=== PATIENT | male | born 1980 | race Caucasian/White ===

== ENCOUNTER 2023-03-20 10:13 | Emergency (ER) | payer OTHER, SELFPAY ==
--- NOTE | ~2023-03-20 | XR_ITS ---
EXAMINATION: XR CHEST CLINICAL INFORMATION: Cough and chest pain COMPARISON: 05/12/2018 TECHNIQUE: 2 views of the chest were obtained. FINDINGS: Lungs are mildly hypoinflated but clear. There appears to be chronic mild thickening of bronchial steward. No airspace disease or pleural effusion. No pneumothorax. Cardiac silhouette has normal size and contour. Skeletal structures and visualized upper abdomen are unremarkable. XR/XR chest 2V IMPRESSION: * No evidence of pneumonia. * There appears to be chronic mild thickening of bronchial steward. This could be a manifestation of asthma or bronchitis.
[2023-03-20 10:36] VITALS: BP 133/87; PULSE 84; RESP 16; TEMP 37.1; O2SAT 98; BMI 33.4
--- NOTE | 2023-03-20 10:40 | ECG_ITS ---
Test Reason : CP Blood Pressure : / mmHG Vent. Rate : 087 BPM Atrial Rate : 087 BPM P-R Int : 188 ms QRS Dur : 084 ms QT Int : 364 ms P-R-T Axes : 054 032 032 degrees QTc Int : 438 ms Normal sinus rhythm Normal ECG When compared to the previous EKG of sinus tachycardia not present. Referred By: Generic ED Physician Electronically Signed By:Law Garcia
[2023-03-20 10:51] LABS: MANUAL DIFF FLAG NO
[2023-03-20 10:52] LABS: Basophils Percent Auto 0.6 % (0-2); Eosinophils Absolute Auto 0.3 X10*3/uL (0.0-0.4); Eosinophils Percent Auto 5.3 % (0-4); Hematocrit 47.3 % (42.0-52.0); Hemoglobin 16.1 g/dl (14.0-18.0); Imm Gran Abs Auto 0.02 X10*3/uL (0.00-0.03); Imm Gran Pct Auto 0.4 % (0.0-0.4); Lymphocytes Absolute Auto 1.8 X10*3/uL (1.2-4.9); Lymphocytes Percent Auto 34.2 % (20-40); Mean Corpuscular Hemoglobin 31.1 pg (27.0-33.0); Mean Corpuscular Volume 91.3 fL (80.0-98.0); Mean Platelet Volume 8.6 fL (9.4-12.4); Monocytes Absolute Auto 0.4 X10*3/uL (0.1-1.2); Monocytes Percent Auto 7.6 % (2-11); Neutrophils Absolute Auto 2.7 x10*3/uL (2.0-8.3); Neutrophils Percent Auto 51.9 % (45-73); Platelet Count 261 X10*3/uL (160-400); Red Blood Count 5.18 X10*6/uL (4.60-5.80); Red Cell Distribution Width 13.6 % (11.0-16.0); White Blood Count 5.3 X10*3/uL (4.8-10.8)
[2023-03-20 11:04] LABS: Anion Gap 10 (12-20); Blood Urea Nitrogen 13 mg/dL (9-16); Calcium 9.4 mg/dL (8.4-10.2); Carbon Dioxide 27 mmol/L (22-29); Chloride 106 mmol/L (96-108); Creatinine Clr Calc Pharmacy 100.2; Estimated Glomerular Filt Rate > 60; Glucose Random 98 mg/dL (60-115); Potassium 4.1 mmol/L (3.3-5.1); Sodium 139 mmol/L (135-145)
[2023-03-20 11:14] LABS: Troponin-I High Sensitivity < 2.7 ng/L (<3.5-35.0)
[2023-03-20 12:39] VITALS: BP 117/75; PULSE 82; RESP 14; TEMP 36.9; O2SAT 97
--- NOTE | 2023-03-20 13:09 | ED.CHESTPAIN ---
HPI - Chest Pain General Chief Complaint: Chest Pain Stated Complaint: asthma Time Seen by Provider: 03/20/23 13:06 Source: patient Mode of arrival: ambulatory Limitations: no limitations History of Present Illness HPI narrative: 42 yo male with PMH of asthma here with c/o coughing, wheezing, chest tightness at night for 4 days. He notes the weather changes are triggering him. He has run out of his inhaler at this point. He denies hx of heart problems. He has not been on prednisone in a while. He denies sputum, fevers or any other complaints. No recent travel. MD complaint: chest heaviness Pertinent past history: asthma Onset (ago): day(s) (4) Timing of current episode: episodic Prior episodes: Yes Onset: during rest Pain location: substernal Pain radiation: left arm Severity: mild Quality: tightness Relieving factors: nothing Exacerbating factors: other (coughing at night) Context: other (hx of same with asthma) Associated symptoms: cough Treatment prior to arrival: other (has used his INH ) Related Data Previous Rx's Medication Instructions Recorded albuterol sulfate 2.5 mg/3 mL 2.5 mg (3 mL) inhalation Q4-6H PRN 03/20/23 (0.083 %) solution for nebulization bronchospasm #75 mL prednisone 20 mg tablet 40 mg (2 x 20 mg) PO DAILY 4 days 03/20/23 #8 tabs Allergies Allergy/AdvReac Type Severity Reaction Status Date / Time Penicillins [PENICILLINS] Allergy Unknown UNKNOWN Unverified 11/11/19 16:51 Review of Systems Review of Systems: Constitutional : No Fever, No Chills ENT/Mouth : No Hoarseness, No sore throat, No Rhinorrhea Eyes: No Redness, No Discharge, No Vision Changes Cardiovascular : No Chest Pain, positive SOB, positive Dyspnea on Exertion, No Edema Respiratory : positive Cough, No Sputum, positive Wheezing, Gastrointestinal : No Nausea, No Vomiting, No Diarrhea, No abdominal Pain Genitourinary : No Dysuria, No Hematuria Musculoskeletal : No joint pain, No Myalgias Skin : No rash Neuro : No Weakness, No Numbness, No Headache Psych : No anxiety, depression Heme/Lymph: No Bruising, No Bleeding Endocrine : No Polyuria, No Polydipsia All other systems reviewed and are negative [facility] [place] Past Medical History Attestation statement: The following information was validated with the patient. Source: old records reviewed Medical History Asthma Social History Social History (Updated 03/20/23 @ 13:56 by Parisa Swain DO) Patient Tobacco Use Status: Never used Tobacco Physical Exam Vital Signs: Vital Signs: Last Vital Signs Temp 98.4 F 03/20/23 12:39 Pulse 82 03/20/23 12:39 Resp 14 03/20/23 12:39 BP 117/75 03/20/23 12:39 Pulse Ox 97 03/20/23 12:39 O2 Del Method Room Air 03/20/23 12:39 BMI result Body Mass Index 33.4 Appearance: Alert. Oriented X3. No acute distress. Eyes: Pupils equal, round and reactive to light. ENT: Pharynx normal. Neck: Normal inspection. Neck supple. CVS: Normal heart rate and rhythm. Pulses normal. Respiratory: No respiratory distress. Breath sounds normal. Abdomen: Soft and nontender. Skin: Skin warm and dry. Normal skin color. Normal skin turgor. Extremities: No lower extremity edema. No calf ttp Neuro: Oriented X 3. No motor deficit. No sensory deficit. Medical Decision Making Medical Decision Making MDM Narrative: 42 yo male with PMH of asthma here with c/o cough, wheezing asthma exacerbation at night - ran out of inhaler here with typical asthma symptoms - his exam and history are not consistent with ACS - it is not exertional and it is triggered by weather. He denies infectious symptoms doubt PNA. He has no risk factors for VTE. Will obtain basic labs, EKG, CXR and start on prednisone and Rx INH. Precautions to return Differential Diagnosis Differential Diagnoses: The differential diagnosis associated with the presentation includes atypical chest pain, viral syndrome, asthma exacerbation PERC negative doubt VTE pulses intact doubt dissection Admission/Observation Consideration of admission/observation: Escalation of care including admission/observation considered not toxic, no hypoxia can be managed as outpatient Lab Data [facility] Lab Attestation statement: I reviewed the patient's lab results. 03/20/23 10:45 03/20/23 10:45 Labs: Lab Results 03/20/23 Range/Units 10:45 WBC 5.3 (4.8-10.8) X10*3/uL RBC 5.18 (4.60-5.80) X10*6/uL Hgb 16.1 (14.0-18.0) g/dl Hct 47.3 (42.0-52.0) % MCV 91.3 (80.0-98.0) fL MCH 31.1 (27.0-33.0) pg MCHC 34.0 (31.0-36.0) g/dl RDW 13.6 (11.0-16.0) % Plt Count 261 (160-400) X10*3/uL MPV 8.6 L (9.4-12.4) fL Immature Gran % (Auto) 0.4 (0.0-0.4) % Neut % (Auto) 51.9 (45-73) % Lymph % (Auto) 34.2 (20-40) % [place] % (Auto) 7.6 (2-11) % Eos % (Auto) 5.3 H (0-4) % Baso % (Auto) 0.6 (0-2) % Lymph # (Auto) 1.8 (1.2-4.9) X10*3/uL [place] # (Auto) 0.4 (0.1-1.2) X10*3/uL Eos # (Auto) 0.3 (0.0-0.4) X10*3/uL Baso # (Auto) 0.0 (0.0-0.2) X10*3/uL Abs Immat Gran (auto) 0.02 (0.00-0.03) X10*3/uL Absolute Neuts (auto) 2.7 (2.0-8.3) x10*3/uL Absolute Nucleated RBC 0.000 (0.0-0.012) X10*3/uL Nucleated RBC % (auto) 0.0 (0.0-0.2) /100WBC Sodium 139 (135-145) mmol/L Potassium 4.1 (3.3-5.1) mmol/L Chloride 106 (96-108) mmol/L Carbon Dioxide 27 (22-29) mmol/L Anion Gap 10 L (12-20) BUN 13 (9-16) mg/dL Creatinine 1.11 (0.5-1.4) mg/dL Estim Creat Clear Calc 100.2 Estimated GFR > 60 Random Glucose 98 (60-115) mg/dL Calcium 9.4 (8.4-10.2) mg/dL Troponin I High Sens < 2.7 (<3.5-35.0) ng/L Independent Interpretation I performed an independent interpretation of an: EKG and Plain X-Ray (normal ) Interpretation: Rate: 87 Rhythm: NSR Schuyler: normal Normal P waves. Normal ERNESTINA. Normal QRS complex. ST T wave : normal no LUIS qTC: normal prior studies: no acute ischemia The study has been interpreted contemporaneously by me. . Radiology Impression Discussion of test interpretation with radiology: I have reviewed the radiologist's reading. Independent Historian Clinical information obtained from an independent historian. History obtained from or confirmed by: Spouse Prescription Management I considered prescription management with: Other Discharge Plan Discharge Clinical Impression: Atypical chest pain Asthma Qualifiers: Asthma severity: moderate Asthma persistence: persistent Asthma complication type: with acute exacerbation Qualified Code(s): J45.41 - Moderate persistent asthma with (acute) exacerbation Patient Disposition: Home, Self-Care Instructions: Chest Pain (ED), Asthma (ED) Additional Instructions: chest xray and EKG, heart test normal will call you if flu and COVID test is positive. return for worsening breathing, pain, dizziness, faitning or any other concerns. please follow up with your doctor you may need regular inhalers to prevent attacks Prescriptions: New albuterol sulfate 2.5 mg /3 mL (0.083 %) solution for nebulization 2.5 mg inhalation Q4-6H PRN (Reason: bronchospasm) Qty: 75 0RF prednisone 20 mg tablet 40 mg PO DAILY 4 Days Qty: 8 0RF
[2023-03-20 14:09] LABS: COVID-19 Test Negative (Negative); IDNOW Serial# 152EDE1D
[2023-03-20 14:13] LABS: IDNOW Serial# 58CA691E; Influenza A Negative (Negative); Influenza B2 Negative (Negative)
[2023-03-20 14:17] VITALS: BP 123/76; PULSE 79; RESP 12; TEMP 37.1; O2SAT 100
[2023-03-20] MEDS: predniSONE 20 MG TABLET 40 MG PO (14:18)
== END 2023-03-20 14:24 | disposition home or self-care (01) ==
PROVIDERS: Emergency Provider Emergency Medicine; PCP Internal Medicine
DX: R07.89 Other chest pain (principal); J45.41 Moderate persistent asthma with (acute) exacerbation; M79.602 Pain in left arm; R05.9 Cough, unspecified; Z11.52 Encounter for screening for COVID-19; Z79.899 Other long term (current) drug therapy
CPT/HCPCS: 36415; 71046; 80048; 84484; 85025; 87502; 87635; 93005; 99283; 99284

== ENCOUNTER → 2023-03-20 10:40 | Outpatient (BNV) | payer OTHER, SELFPAY | PROVIDERS: Emergency Provider Emergency Medicine; PCP Internal Medicine; Visit Provider Internal Medicine Cardiovascular Disease | DX: R07.9 Chest pain, unspecified (principal) | CPT/HCPCS: 93010 ==

== ENCOUNTER → 2023-12-02 11:14 | Outpatient (BNVA) | payer SELFPAY | PROVIDERS: PCP Internal Medicine; Visit Provider Physician Assistant Medical | DX: Z02.79 Encounter for issue of other medical certificate (principal) ==